=== PATIENT | male | born 2000 | race African-American/Black ===

== ENCOUNTER 2020-07-25 16:21 | Emergency (ER) | payer OTHER ==
[~2020-07-25] VITALS: Ht 185.4 cm; Wt 85.3 kg
[2020-07-25 16:34] VITALS: BP 110/62
--- NOTE | 2020-07-25 16:57 | NUR ---
ENGINEERING INSTRUCTOR AT BEDSIDE FOR XRAY.
--- NOTE | 2020-07-25 18:40 | NUR ---
SUTURING DONE BY .
[2020-07-25] MEDS ORDERED: IBUP-1957 PO (18:41)
--- NOTE | 2020-07-25 18:50 | NUR ---
WOUND DRESSING DONE BY RAIL SPECIALIST.
--- NOTE | 2020-07-25 18:54 | NUR ---
Patient discharged to home in stable condition. Written and verbal after care instructions given. Patient verbalizes understanding of instruction.
== END 2020-07-25 18:58 | disposition home or self-care (01) ==
LOC: ER 16:31
DX: S81.812A Laceration without foreign body, left lower leg, initial encounter (principal); Z98.890 Other specified postprocedural states; V00.131A Fall from skateboard, initial encounter; Y93.51 Activity, roller skating (inline) and skateboarding; Y92.89 Other specified places as the place of occurrence of the external cause; Y99.8 Other external cause status
CPT/HCPCS: 12004; 73590; 99283; A6403

== ENCOUNTER → 2020-08-09 | Emergency (ER) | payer OTHER ==
[~2020-08-09] VITALS: Ht 185.4 cm; Wt 83.0 kg
[~2020-08-09] MED LIST: IBUP-1957 PO
[2020-08-09 15:40] VITALS: BP 119/62
--- NOTE | 2020-08-09 16:40 | NUR ---
The patient is alert and oriented Patient discharged to home in stable condition. Written and verbal after care instructions given. Patient verbalizes understanding of instruction. Patient left ER in stable condition.
== END | disposition home or self-care (01) ==
LOC: ER 15:36
DX: S81.812D Laceration without foreign body, left lower leg, subsequent encounter (principal); Z98.890 Other specified postprocedural states; Z79.899 Other long term (current) drug therapy; X58.XXXD Exposure to other specified factors, subsequent encounter